=== PATIENT | male | born 1975 | race Caucasian/White ===

== ENCOUNTER 2017-06-25 11:07 | Emergency (ER) | payer MEDICARE, MEDICAID ==
[~2017-06-25] VITALS: Ht 175.3 cm; Wt 91.8 kg
[~2017-06-25 11:07] MED LIST: SYNT137T PO
[2017-06-25 11:09] VITALS: BP 156/76; PULSE 74; RESP 18; TEMP 98.6; O2SAT 95
[2017-06-25] MEDS ORDERED: DEPRESSION MED PO (11:20)
[2017-06-25] MEDS ORDERED: ANXIETY MED PO (11:20)
[2017-06-25] MEDS ORDERED: CHOLMIS5 PO (11:20)
--- NOTE | 2017-06-25 11:43 | PD ---
HPI Chief Complaint: Flank/Kidney Pain Time Seen by Provider: 11:24 Travel History International Travel<30 days: No Contact w/Intl Traveler<30days: No Traveled to known affect area: No History of Present Illness HPI 41yo M with PMH of DiGeorge syndrome and renal cancer presents to the ED with c/ o right flank pain for 3 days. Pain is constant but waxes and wanes in intensity. Pain is sharp. Radiates from right back to right flank. States he had right renal cancer last year and they removed the tumor. States pain felt similar. Denies any fever, chest pain, sob, n/v, dysuria, hematuria, testicular pain, penile discharge or rash, trauma, IVDA, focal weakness or numbness. Did not take anything for pain. Said he did not need any chemotherapy or radiation therapy after. 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) COPD: No Cerebrovascular Accident: No Developmental Delay: Yes Diabetes: No Diminished Hearing: No Endocrine: Yes Gastrointestinal Disorders: No GERD: No Glaucoma: No Genitourinary: No Headaches: No Hepatitis: No Hiatal Hernia: No Hypertension: No Immune Disorder: No Kidney Stones: No Musculoskeletal: No Neurologic: No Psychiatric: No Respiratory: Yes (pneumonia) Immunizations Current: Yes Myocardial Infarction: No Radiation Therapy: No Renal Failure: No Seizures: Yes (SEIZURES WHEN PATIENT WAS 5 AND 6 YEARS OLD) Sickle Cell Disease: No Sleep Apnea: No Thyroid Disease: Yes Ulcer: No Tetanus Vaccination: Unknown Influenza Vaccination: No Past Surgical History Abdominal Surgery: Yes (HERNIA) AICD: No Cardiac Surgery: Yes (HEART LUNG SURG CHILD- ABSENT LEFT LUNG AND LEFT PULMONARY ARTERY) Coronary Artery Bypass Graft: Yes Coronary Stent: Yes Ear Surgery: No Endocrine Surgery: No Eye Surgery: No Genitourinary Surgery: Yes (KIDNEY TUMOR RT) Gynecologic Surgery: No Joint Replacement: No Neurologic Surgery: No Oral Surgery: No Pacemaker: Yes Thoracic Surgery: No Other Surgery: Yes Social History Alcohol Use: No Tobacco Use: No Substance Use: No Allergies-Medications (Allergen,Severity, Reaction): Coded Allergies: No Known Allergies (Verified , 06/25/17) Reported Meds & Prescriptions Reported Meds & Active Scripts Active Tylenol (Acetaminophen) 325 Mg Tab 650 Mg PO Q6H PRN Reported [Depression Med] 1 Tab PO DAILY [Anxiety Med] 1 Tab PO DAILY [Cholesterol] 1 Tab PO DAILY Synthroid 137 mcg (Levothyroxine Sodium) 137 Mcg Tab 137 Mcg PO DAILY Review of Systems Except as stated in HPI: all other systems reviewed are Neg Physical Exam Narrative GENERAL: 41yo M in mild distress. SKIN: Focused skin assessment warm/dry. HEAD: Atraumatic. Normocephalic. CARDIOVASCULAR: Regular rate and rhythm. No murmur appreciated. RESPIRATORY: No accessory muscle use. Clear to auscultation. Breath sounds equal bilaterally. GASTROINTESTINAL: Abdomen soft, non-tender, nondistended. No rebound tenderness or guarding. BACK: +CVA tenderness on right. No midline thoracic or lumbar ttp. No erythema. No mass. MUSCULOSKELETAL: No obvious deformities. No clubbing. No cyanosis. No edema. NEUROLOGICAL: Awake and alert. No obvious cranial nerve deficits. Motor grossly within normal limits. Normal speech. PSYCHIATRIC: Appropriate mood and affect; insight and judgment normal. Data Data Last Documented VS Vital Signs Date Time Temp Pulse Resp B/P (MAP) Pulse Ox O2 Delivery O2 Flow Rate FiO2 06/25/17 13:37 06/25/17 12:51 68 18 96 Room Air 06/25/17 11:09 98.6 Orders Orders Urinalysis - C+S If Indicated (06/25/17 11:20) Complete Blood Count With Diff (06/25/17 11:39) Comprehensive Metabolic Panel (06/25/17 11:39) Lipase (06/25/17 11:39) Ct Abd/Pel W Iv Contrast(Rout) (06/25/17 11:39) Iv Access Insert/Monitor (06/25/17 11:39) Ecg Monitoring (06/25/17 11:39) Oximetry (06/25/17 11:39) Sodium Chloride 0.9% Flush (Ns Flush) (06/25/17 11:45) Ketorolac Inj (Toradol Inj) (06/25/17 11:45) Iohexol 350 Inj (Omnipaque 350 Inj) (06/25/17 12:40) Labs Laboratory Tests Test 06/25/17 11:20 06/25/17 11:40 Urine Collection Type CLEAN CATCH Urine Color YELLOW Urine Turbidity CLEAR Urine pH 6.0 Urine Specific [place] 1.020 Urine Protein NEG mg/dL Urine Glucose (UA) NEG mg/dL Urine Ketones NEG mg/dL Urine Occult Blood NEG Urine Nitrite NEG Urine Bilirubin NEG Urine Leukocyte Esterase NEG Urine RBC 0-3 /hpf Urine Squamous Epithelial Cells 0-5 /hpf Microscopic Urinalysis Comment CULT NOT INDICATED Urine Collection Time 11:20 White Blood Count 8.2 TH/MM3 Red Blood Count 4.89 MIL/MM3 Hemoglobin 13.8 GM/DL Hematocrit 42.6 % Mean Corpuscular Volume 87.2 FL Mean Corpuscular Hemoglobin 28.2 PG Mean Corpuscular Hemoglobin Concent 32.4 % Red Cell Distribution Width 12.9 % Platelet Count 177 TH/MM3 Mean Platelet Volume 10.0 FL Neutrophils (%) (Auto) 69.8 % Lymphocytes (%) (Auto) 17.5 % Monocytes (%) (Auto) 6.6 % Eosinophils (%) (Auto) 3.5 % Basophils (%) (Auto) 2.6 % Neutrophils # (Auto) 5.8 TH/MM3 Lymphocytes # (Auto) 1.4 TH/MM3 Monocytes # (Auto) 0.5 TH/MM3 Eosinophils # (Auto) 0.3 TH/MM3 Basophils # (Auto) 0.2 TH/MM3 CBC Comment DIFF FINAL Differential Comment Blood Urea Nitrogen 14 MG/DL Creatinine 1.10 MG/DL Random Glucose 128 MG/DL Total Protein 7.3 GM/DL Albumin 3.5 GM/DL Calcium Level 8.4 MG/DL Alkaline Phosphatase 92 U/L Aspartate Amino Transf (AST/SGOT) 21 U/L Alanine Aminotransferase (ALT/SGPT) 30 U/L Total Bilirubin 0.4 MG/DL Sodium Level 138 MEQ/L Potassium Level 4.3 MEQ/L Chloride Level 104 MEQ/L Carbon Dioxide Level 29.4 MEQ/L Anion Gap 5 MEQ/L Estimat Glomerular Filtration Rate 74 ML/MIN Lipase 167 U/L [facility] Medical Decision Making Medical Screen Exam Complete: Yes Emergency Medical Condition: Yes Differential Diagnosis Renal cancer vs. pyelonephritis vs. nephrolithiasis Narrative Course 41yo M with right sided back and flank pain. Pt has history of renal tumor that was removed on the right side. Said it was removed and no further treatment was needed. This pain feels similar. Labs reviewed, no leukocytosis. Creatinine normal at 1.10. LFTs normal. Lipase normal. UA negative. Pt given toradol for pain. Will do CTa/p given history of right renal tumor and now return of similar pain in right flank. CT a/p showed focal area of induration of the fat in the right perinephric space adjacent to the inferior pole of right kidney. No evidence of hydronephrosis or mass. Significance of this induration is uncertain, could be inflammatory or a manifestation of prior trauma. I informed pt of this finding and they said that they did not want to follow up with their prior doctor so will refer to our ceramic capacitor processor. Pt reevaluated at bedside and pain has improved. Return precautions given. Vital signs normal. Diagnosis Primary Impression: Right flank pain Referrals: Teressa Deal MD call for appointment History or renal cancer with right back pain. CT showed focal area of induration of fat in perinephric space of right kidney. Patient Instructions: General Instructions Departure Forms: Tests/Procedures Additional Instructions: Please follow up with your primary care physician or ceramic capacitor processor as needed. Return to the ED if symptoms worsen. Med/Other Pt SpecificInfo: Prescription(s) given Scripts Acetaminophen (Tylenol) 325 Mg Tab 650 MG PO Q6H Y for PAIN SCALE 1 TO 4, #20 TAB 0 Refills Prov: Connie Alegria 06/25/17 Disposition: 01 DISCHARGE HOME Condition: Stable Connie Alegria DO Jun 25, 2017 11:43
[2017-06-25] MEDS ORDERED: SODIUM CHLORIDE 0.9% FLUSH 10 ML FLUSH IV FLUSH PRN (11:45)
[2017-06-25] MEDS ORDERED: KETOROLAC TROMETHAMINE 30 MG/ML (IVP) VIAL IVP ONE (11:45)
[2017-06-25 11:46] LABS: BLOOD, URINE NEG (NEG); GLUCOSE,URINE NEG (NEG); KETONE, URINE NEG (NEG); NITRITE,URINE NEG (NEG)
[2017-06-25 11:53] LABS: METHOD OF COLLECTION CLEAN CATCH; URINE COLOR YELLOW (YELLW/STRAW)
[2017-06-25 11:53] LABS: AUTOMATED NEUTROPHIL # 5.8 TH/MM3 (1.8-7.7); BASOPHIL # 0.2 TH/MM3 (0-0.2); BASOPHIL % 2.6 % (0.0-2.0); EOSINOPHIL # 0.3 TH/MM3 (0-0.4); EOSINOPHIL % 3.5 % (0.0-4.0); HEMATOCRIT 42.6 % (39.0-51.0); HEMO FLAGS DIFF FINAL; LYMPH % 17.5 % (9.0-44.0); LYMPHOCYTE # 1.4 TH/MM3 (1.0-4.8); MEAN CELL VOLUME 87.2 FL (80.0-100.0); MEAN CORPUSCULAR HEMOGLOBIN 28.2 PG (27.0-34.0); MEAN CORPUSCULAR HGB CONC 32.4 % (32.0-36.0); MONO % 6.6 % (0.0-8.0); NEUT % 69.8 % (16.0-70.0); PLATELET COUNT 177 TH/MM3 (150-450); RED BLOOD COUNT 4.89 MIL/MM3 (4.50-5.90); RED CELL DISTRIBUTION WIDTH 12.9 % (11.6-17.2); WHITE BLOOD COUNT 8.2 TH/MM3 (4.0-11.0)
[2017-06-25 11:54] VITALS: O2SAT 96
[2017-06-25 11:55] LABS: COMMENT (UR) CULT NOT INDICATED; CULTURE IF INDICATED CULT NOT INDICATED; RBC, URINE 0-3 /hpf (0-3); SQUAMOUS EPITHELIAL CELL URINE 0-5 /hpf (0-5)
[2017-06-25 12:02] LABS: CHLORIDE 104 MEQ/L (98-107); SODIUM (NA) 138 MEQ/L (136-145)
[2017-06-25 12:06] LABS: POTASSIUM 4.3 MEQ/L (3.5-5.1)
[2017-06-25 12:07] LABS: ANION GAP 5 MEQ/L (5-15); BICARBONATE 29.4 MEQ/L (21.0-32.0); BLOOD UREA NITROGEN 14 MG/DL (7-18)
[2017-06-25 12:10] LABS: ALT (GPT) 30 U/L (12-78); AST (GOT) 21 U/L (15-37); GLOMERULAR FILTRATION RATE 74 ML/MIN (>89)
[2017-06-25 12:11] LABS: TOTAL BILIRUBIN ADULT 0.4 MG/DL (0.2-1.0)
[2017-06-25 12:12] LABS: ALKALINE PHOSPHATASE 92 U/L (45-117)
[2017-06-25] MEDS ORDERED: IOHEXOL 350 MG/ML 10 ML VIAL (for RAD DIAG) IVCONTRAST ONE (12:40)
[2017-06-25 12:51] VITALS: BP 131/70; PULSE 68; RESP 18; O2SAT 96
--- NOTE | 2017-06-25 13:16 | RADRPT ---
EXAM DATE/TIME: 06/25/2017 12:32 [facility] COMPARISON: No previous studies available for comparison. INDICATIONS : Right flank pain. IV CONTRAST: 85 cc Omnipaque 350 (iohexol) IV ORAL CONTRAST: No oral contrast ingested. RADIATION DOSE: 13.36 CTDIvol (mGy) MEDICAL HISTORY : Cardiovascular disease. Renal cell carcinoma. SURGICAL HISTORY : CABG Pacemaker.Tumor removed from right kidney. ENCOUNTER: Initial ACUITY: 1 day PAIN SCALE: 6/10 LOCATION: Right flank TECHNIQUE: Volumetric scanning of the abdomen and pelvis was performed. Using automated exposure control and ad justment of the mA and/or kV according to patient size, radiation dose was kept as low as reasonably achievable to obtain optimal diagnostic quality images. DICOM format image data is available electro nically for review and comparison. FINDINGS: LOWER LUNGS: The visualized lower lungs are clear. LIVER: Homogeneous density without lesion. There is no dilation of the biliary tree. No calcified gallston es. SPLEEN: Normal size without lesion. PANCREAS: Within normal limits. KIDNEYS: The kidneys are symmetric in size. No evidence of hydronephrosis or calcified stones. There is a foca l area of induration in the fat of the perinephric space on the right side adjacent to the inferior p ole of the kidney. There is also an elongated 1 cm low density area which may represent some focal fl uid; this has a discernible wall. ADRENAL GLANDS: Within normal limits. VASCULAR: There is no aortic aneurysm. BOWEL/MESENTERY: No dilated loops of small or large bowel. ABDOMINAL WALL: Metallic anchor sutures in the left peritoneum and inguinal region from presumed inguinal hernia repa ir. RETROPERITONEUM: There is no lymphadenopathy. BLADDER: No wall thickening or mass. REPRODUCTIVE: Within normal limits. INGUINAL: Bilateral inguinal lymph nodes which measure up to 2.5 cm, but these lymph nodes do have a prominent discernible fatty hilum. MUSCULOSKELETAL: Within normal limits for patient age. CONCLUSION: 1. Focal area of induration of the fat in the right perinephric space adjacent to the inferior pole t he right kidney. The parenchymal enhancement of the adjacent lower pole the right kidney is normal. N o evidence of hydronephrosis or mass. The significance of this induration is uncertain; could be infl ammatory or a manifestation of prior trauma. 2. Enlarged bilateral inguinal lymph nodes have normal appearing fatty logan. Buddy Melendez MD on June 25, 2017 at 13:10 Board Certified Radiologist. This report was verified electronically.
[2017-06-25] MEDS ORDERED: TYLE325T PO (13:34)
[2017-06-26] MEDS ORDERED: SULI200T PO (15:19)
[2017-06-26] MEDS ORDERED: PERC5TAB12 PO (15:19)
[2017-06-26] MEDS ORDERED: PERI8.6T PO (15:20)
== END 2017-06-25 13:45 | disposition home or self-care (01) ==
LOC: PHED 11:07
DX: R10.9 Unspecified abdominal pain (principal); I25.10 Atherosclerotic heart disease of native coronary artery without angina pectoris; I50.9 Heart failure, unspecified; Z95.0 Presence of cardiac pacemaker; Z95.5 Presence of coronary angioplasty implant and graft; Z95.1 Presence of aortocoronary bypass graft
CPT/HCPCS: 74177; 80053; 81001; 83690; 85025; 96374; 99285; J1885; Q9967

== ENCOUNTER 2017-10-11 18:44 | Emergency (ER) | payer MEDICARE, MEDICAID | END 2017-10-11 19:21 | disposition home or self-care (01) | LOC: PHED 18:44 | DX: N48.1 Balanitis (principal); F41.8 Other specified anxiety disorders; I50.9 Heart failure, unspecified; Z95.5 Presence of coronary angioplasty implant and graft | CPT/HCPCS: 99283 ==

== ENCOUNTER 2018-03-01 17:36 | Emergency (ER) | payer MEDICARE ==
[~2018-03-01 17:36] MED LIST changes: +ATOR40TA16 PO; +LEVO150T7 PO; +NYST15T TOPICAL; -SYNT137T PO
[2018-03-01 17:50] VITALS: BP 145/78; PULSE 91; RESP 16; TEMP 98; O2SAT 94
--- NOTE | 2018-03-01 19:10 | RADRPT ---
EXAM DATE: 03/01/2018 6:46 PM EDT AGE/SEX: 42 years / Male INDICATIONS: Left flank pain after wrestling with friends 3 days ago. CLINICAL DATA: This is the patient's initial encounter. Patient reports that signs and symptoms have been present for 3 days and indicates a pain score of 8/10. MEDICAL/SURGICAL HISTORY: None. . Heart and lung surgery as a child. COMPARISON: No prior exams available for comparison. FINDINGS: No definite displaced rib fractures or pneumothorax is identified. There is mild cortical irregularity of the left lower seventh and eighth ribs chronic in nature. CONCLUSION: No definite acute fracture. Electronically signed by: Dominique Ortega MD 03/01/2018 7:09 PM EDT
[2018-03-01] MEDS ORDERED: IBUP1TAB7 PO (19:19)
--- NOTE | 2018-03-01 19:19 | PD ---
HPI Chief Complaint: Injury Time Seen by Provider: 18:12 Travel History International Travel<30 days: No Contact w/Intl Traveler<30days: No Traveled to known affect area: No History of Present Illness HPI 42-year-old male with left rib pain 2 days. He reports he was wrestling with a friend when he injured the ribs. He is unsure of the specific mechanism of injury. He reports the area has been tender and he has pain with sneezing and deep inspiration. No chest pain or shortness of breath. No fever chills. Symptom severity is moderate. 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) COPD: No Cerebrovascular Accident: No Developmental Delay: Yes Diabetes: No Diminished Hearing: No Endocrine: Yes Gastrointestinal Disorders: No GERD: No Glaucoma: No Genitourinary: No Headaches: No Hepatitis: No Hiatal Hernia: No Hypertension: No Immune Disorder: No Kidney Stones: No Musculoskeletal: No Neurologic: No Psychiatric: No Reproductive: No Respiratory: Yes (pneumonia) Immunizations Current: Yes Myocardial Infarction: No Radiation Therapy: No Renal Failure: No Seizures: Yes (SEIZURES WHEN PATIENT WAS 5 AND 6 YEARS OLD) Sickle Cell Disease: No Sleep Apnea: No Thyroid Disease: Yes Ulcer: No Tetanus Vaccination: < 5 Years Influenza Vaccination: Yes Past Surgical History Abdominal Surgery: Yes (HERNIA) AICD: No Cardiac Surgery: Yes (HEART LUNG SURG CHILD- ABSENT LEFT LUNG AND LEFT PULMONARY ARTERY) Coronary Artery Bypass Graft: Yes Coronary Stent: Yes Ear Surgery: No Endocrine Surgery: No Eye Surgery: No Genitourinary Surgery: Yes (KIDNEY TUMOR RT) Gynecologic Surgery: No Joint Replacement: No Neurologic Surgery: No Oral Surgery: No Pacemaker: Yes Thoracic Surgery: No Other Surgery: Yes Social History Alcohol Use: Yes (SOCIAL) Tobacco Use: No Substance Use: No Allergies-Medications (Allergen,Severity, Reaction): Coded Allergies: No Known Allergies (Verified Adverse Reaction, Unknown, 03/01/18) Reported Meds & Prescriptions Reported Meds & Active Scripts Active Ibuprofen 800 Mg Tab 800 Mg PO Q6HR PRN Atorvastatin (Atorvastatin Calcium) 40 Mg Tab 40 Mg PO HS Levothyroxine (Levothyroxine Sodium) 150 Mcg Tab 150 Mcg PO DAILY Review of Systems Except as stated in HPI: all other systems reviewed are Neg General / Constitutional: No: Fever Eyes: No: Visual changes HENT: No: Headaches Cardiovascular: No: Chest Pain or Discomfort Respiratory: No: Shortness of Breath Gastrointestinal: No: Abdominal Pain Genitourinary: No: Dysuria Physical Exam Narrative GENERAL: Alert and well-appearing 42-year-old male. No distress. SKIN: Warm and dry. HEAD: Normocephalic. EYES: No injection or drainage. NECK: Supple, trachea midline. No cervical midline tenderness. CARDIOVASCULAR: Regular rate and rhythm without murmurs, gallops, or rubs. RESPIRATORY: Breath sounds equal bilaterally. No accessory muscle use. Even and equal chest rise. GASTROINTESTINAL: Abdomen soft, non-tender, nondistended. MUSCULOSKELETAL: No cyanosis, or edema. +TTP left lateral lower ribs. No crepitus or palpable fracture. BACK: Nontender without obvious deformity. No CVA tenderness. Data Data Last Documented VS Vital Signs Date Time Temp Pulse Resp B/P (MAP) Pulse Ox O2 Delivery O2 Flow Rate FiO2 03/01/18 17:59 Room Air 03/01/18 17:50 98.0 91 16 145/78 (100) 94 Orders Orders Ribs, Uni (W/Exp Cxr-Min 3vw) (03/01/18 ) MDM Medical Decision Making Medical Screen Exam Complete: Yes Emergency Medical Condition: Yes Differential Diagnosis Rib fracture versus contusion versus pneumothorax Narrative Course 42-year-old male here with left lower rib pain 2 days. He is well-appearing. No respiratory distress. X-rays negative for fracture or pneumothorax. Diagnosis Primary Impression: Rib contusion Qualified Codes: S20.212A - Contusion of left front wall of thorax, initial encounter Referrals: Primary Care Physician Additional Instructions: Medication as directed Avoid heavy lifting or strenuous activity. Follow-up with your primary doctor. Scripts Ibuprofen (Ibuprofen) 800 Mg Tab 800 MG PO Q6HR Y for PAIN, #40 TAB 0 Refills Prov: Patricia Hoffman 03/01/18 Disposition: 01 DISCHARGE HOME Condition: Stable Patricia Hoffman Mar 01, 2018 19:19
== END 2018-03-01 19:26 | disposition home or self-care (01) ==
LOC: PHEFT 17:36
DX: S20.212A Contusion of left front wall of thorax, initial encounter (principal); F41.9 Anxiety disorder, unspecified; F32.9 Major depressive disorder, single episode, unspecified; I50.9 Heart failure, unspecified; E07.9 Disorder of thyroid, unspecified; X58.XXXA Exposure to other specified factors, initial encounter; Z79.899 Other long term (current) drug therapy; Z86.69 Personal history of other diseases of the nervous system and sense organs
CPT/HCPCS: 71101; 99283